=== PATIENT | female | born 1965 | race African-American/Black ===

== ENCOUNTER 2018-07-28 04:05 | Observation (INO) ==
--- NOTE | 2018-07-28 04:37 | ED ---
HPI General Chief Complaint: Headache Stated Complaint: Medical Clearance Time Seen by Provider: 07/28/18 04:28 Source: patient and family Mode of arrival: ambulatory Limitations: no limitations History of Present Illness HPI Narrative: 52-year-old female presents to the emergency department by private transportation in the care of family for evaluation of dizziness mild headache brief period of being aphasic. According to the patient she has moved here from [facility] approximately 5 months ago in January. [place] had several episodes like this over the past year and since arriving here and moving to the area she has had 2 and this is her second episode. Patient states she went to bed feeling well having no concerns or complaints and awakened around 330 to go to the bathroom. Patient states she walked upstairs and when she got to the bathroom she felt very dizzy and had mild left-sided headache and did not feel well. Patient states she used to voice to text to her daughter and had to send a text twice. Daughter reports that upon her arrival to the bathroom patient was sitting upright was not able to say anything and seemed to be in a stare but the patient did try to communicate with the daughter. Patient and daughter both report episode was approximately 30 minutes in duration after the episode was resolved there was no confusion patient is back to her baseline. Patient has history of hypertension diabetes and migraines. Patient states this was not a typical migraine for her. Patient not experience any severe headache intractable headache vomiting visual or auditory disturbance. Patient has had some associated nausea. Patient denies any chest pain shortness of breath referred neck jaw back shoulder arm pain upper extremity lower extremity numbness tingling or weakness but had generalized weakness no recent dysuria frequency urgency polyuria polyphagia polydipsia. Patient states blood sugars have been well controlled. Patient states she has never had these dizzy spells evaluated before. No prior history of TIA CVA seizure or arrhythmia. MD complaint: Reports dizziness and other (headache) Onset (ago): minute(s) Time: 03:30 Timing: gradual onset Description: Reports lightheadedness History of similar episodes: Yes History of trauma: No Severity: similar to previous episodes Relieving factors: nothing, remaining still and rest Exacerbating factors: nothing (Not aware of specific precipitating factor.) Associated symptoms: Reports nausea; Denies ataxia, chest pain, confusion, diaphoresis, fever, chills, malaise, rash, shortness of breath, syncope, vision changes and vomiting Related Data Home Medications Medication Instructions Recorded Confirmed amlodipine [Norvasc] 10 mg PO DAILY 07/28/18 07/28/18 ferrous sulfate [iron] 325 mg PO DAILY 07/28/18 07/28/18 gabapentin 300 mg PO TID 07/28/18 07/28/18 hydrochlorothiazide 12.5 mg PO DAILY 07/28/18 07/28/18 omeprazole magnesium [Prilosec OTC] 20 mg PO DAILY 07/28/18 07/28/18 quetiapine [Seroquel] 100 mg PO TID 07/28/18 07/28/18 topiramate 50 mg PO BID 07/28/18 07/28/18 venlafaxine 150 mg PO DAILY 07/28/18 07/28/18 Allergies Allergy/AdvReac Type Severity Reaction Status Date / Time No Known Allergies Allergy Verified 07/28/18 04:24 Review of Systems ROS: all other systems reviewed are negative PMFSH History History Provided By: Patient (Diabetes hypertension migraine dizzy spells) Medical History Medical History Diabetes (Acute) Hypertension (Acute) Patient denies medical problems (Acute) Social History Social History Substance History: No History of Abuse Smoking Status: Never smoker How Often Do You Have a Drink Containing Alcohol: Never Recent Travel in [facility] within the Last 8 Weeks: No Recent Out of Country Travel within the Last 8 Weeks: No Immunization History Tetanus Immunization: Unsure Exam Narrative Exam Narrative: GENERAL: Well-developed well-nourished female in no acute distress no respiratory distress GCS 15 SKIN: Focused skin assessment warm/dry. HEAD: Atraumatic. Normocephalic. EYES: Pupils equal and round. No scleral icterus. No injection or drainage. ENT: No nasal bleeding or discharge. Mucous membranes pink and moist. NECK: Trachea midline. No JVD. CARDIOVASCULAR: Regular rate and rhythm. No murmur appreciated. RESPIRATORY: No accessory muscle use. Clear to auscultation. Breath sounds equal bilaterally. GASTROINTESTINAL: Abdomen soft, non-tender, nondistended. Hepatic and splenic margins not palpable. MUSCULOSKELETAL: No obvious deformities. No clubbing. No cyanosis. No edema. NEUROLOGICAL: Awake and alert. No obvious cranial nerve deficits. Motor grossly within normal limits. Normal speech. PSYCHIATRIC: Appropriate mood and affect; insight and judgment normal. Course Initial Documented Vital Signs Temperature 97.7 F 07/28/18 04:08 Pulse Rate 67 07/28/18 04:08 Respiratory Rate 16 07/28/18 04:08 Blood Pressure 145/80 H 07/28/18 04:08 Pulse Oximetry 100 07/28/18 04:08 Last Documented Vital Signs Temperature 97.7 F 07/28/18 04:08 Pulse Rate 80 07/28/18 06:49 Respiratory Rate 16 07/28/18 06:49 Blood Pressure 145/71 H 07/28/18 06:49 Pulse Oximetry 100 07/28/18 06:49 Medical Decision Making MDM Narrative Medical decision making narrative: 52-year-old female comes in concerned with dizziness reportedly. Of being nonverbal and mild headache with history of migraines with atypical headache symptoms not of her migraine. Patient replaced on quality assurance monitor orthostatic blood pressure and heart rate will be obtained CT brain noncontrast ordered EKG and lab work ordered Patient given Zofran 4 mg for complaint of nausea CT brain noncontrast reveals no acute abnormality patient given Toradol 30 mg IV for complaint of mild headache for 5/10 in intensity Urinalysis pending lab values are otherwise grossly in normal range patient still complains of dizziness neurologic exam remains nonfocal and NIH SS is 0 patient does report headache somewhat positional but also persistent will put patient in for observation and further TIA workup; EKG sinus without ectopy. Medical Screen Exam Complete: Yes Emergency Medical Condition: Yes Differential Diagnosis Differential Diagnosis: Dizziness, TIA, migraine variant, seizure, arrhythmia, post micturition near syncope, hypoglycemia Medical Records no prior visit Lab Data Lab results reviewed: Yes I reviewed the patient's lab results. Result diagrams: 07/28/18 04:30 07/28/18 04:30 Lab Results 07/28/18 07/28/18 Range/Units 04:30 04:30 WBC 4.5 (4.0-11.0) th/mm3 RBC 4.50 (4.00-5.30) mil/mm3 Hgb 12.5 (11.6-15.3) gm/dL Hct 38.2 (35.0-46.0) % MCV 85.0 (80.0-100.0) fL MCH 27.7 (27.0-34.0) pg MCHC 32.6 (32.0-36.0) % RDW 14.3 (11.6-17.2) % Plt Count 232 (150-450) th/mm3 MPV 7.8 (7.0-11.0) fL Neut % (Auto) 52.0 (16.0-70.0) % Lymph % (Auto) 37.7 (9.0-44.0) % [place] % (Auto) 6.8 (0.0-8.0) % Eos % (Auto) 3.1 (0.0-4.0) % Baso % (Auto) 0.4 (0.0-2.0) % Neut # (Auto) 2.3 (1.8-7.7) th/mm3 Lymph # (Auto) 1.7 (1.0-4.8) th/mm3 [place] # (Auto) 0.3 (0.0-0.9) th/mm3 Eos # (Auto) 0.1 (0.0-0.4) th/mm3 Baso # (Auto) 0.0 (0.0-0.2) th/mm3 WBC Differential . Differential Comment Auto diff final Sodium 140 (136-145) meq/L Potassium 3.5 (3.5-5.1) meq/L Chloride 107 (98-107) meq/L Carbon Dioxide 25.5 (21.0-32.0) meq/L Anion Gap 8 (5-15) meq/L BUN 12 (7-18) mg/dL Creatinine 1.10 H (0.50-1.00) mg/dL Estimated GFR 52 L (>89) mL/min Random Glucose 128 H (74-106) mg/dL Calcium 8.8 (8.5-10.1) mg/dL Magnesium 2.0 (1.5-2.5) mg/dL Total Bilirubin 0.2 (0.2-1.0) mg/dL AST 13 L (15-37) U/L ALT 16 (10-53) U/L Alkaline Phosphatase 72 (45-117) U/L Total Creatine Kinase 110 (26-192) U/L Troponin I Less than 0.02 L (0.02-0.05) ng/mL Total Protein 8.0 (6.4-8.2) g/dL Albumin 3.8 (3.4-5.0) g/dL Imaging Data Radiologist's impression: Head CT 07/28/18 04:28 CONCLUSION: Negative noncontrast head CT. . ECG Data Interpretation: EKG: Normal sinus rhythm no ectopy or ST segment elevation or injury Discharge Plan Discharge Disposition Patient Disposition: 30 Still Patient Discharge Condition Condition: Stable Discharge Details Diagnosis: Dizziness, TIA (transient ischemic attack) Physicians Team ED Provider: Nadiya Augustine Primary Care Provider: Primary Care Savanna Henderson Rxs /Orders / Referrals /Forms Prescriptions: No Action venlafaxine 150 mg Capsule,Extended Release 24hr 150 mg PO DAILY RF: 0 quetiapine [Seroquel] 100 mg Tablet 100 mg PO TID RF: 0 amlodipine [Norvasc] 10 mg Tablet 10 mg PO DAILY RF: 0 ferrous sulfate [iron] 325 mg (65 mg iron) Tablet 325 mg PO DAILY RF: 0 gabapentin 300 mg Capsule 300 mg PO TID RF: 0 hydrochlorothiazide 25 mg Tablet 12.5 mg PO DAILY RF: 0 omeprazole magnesium [Prilosec OTC] 20 mg Tablet,Delayed Release (Dr/Ec) 20 mg PO DAILY RF: 0 topiramate 50 mg Tablet 50 mg PO BID RF: 0 Status ED Status: Admitted Observation Patient
[2018-07-28 04:44] LABS: Baso % (Auto) 0.4 % (0.0-2.0); Eos # (Auto) 0.1 th/mm3 (0.0-0.4); Eos % (Auto) 3.1 % (0.0-4.0); Hematocrit 38.2 % (35.0-46.0); Hemoglobin 12.5 gm/dL (11.6-15.3); Lymph # (Auto) 1.7 th/mm3 (1.0-4.8); Lymph % (Auto) 37.7 % (9.0-44.0); Mean Corpuscular HGB Conc 32.6 % (32.0-36.0); Mean Corpuscular Hemoglobin 27.7 pg (27.0-34.0); Mean Platelet Volume 7.8 fL (7.0-11.0); Mono # (Auto) 0.3 th/mm3 (0.0-0.9); Mono % (Auto) 6.8 % (0.0-8.0); Neut # (Auto) 2.3 th/mm3 (1.8-7.7); Platelet Count 232 th/mm3 (150-450); Red Cell Distribution Width 14.3 % (11.6-17.2); White Blood Count 4.5 th/mm3 (4.0-11.0)
--- NOTE | 2018-07-28 04:56 | CT ---
EXAM DATE: 07/28/2018 4:42 AM EDT AGE/SEX: 52 years / Female INDICATIONS: Migraine. Nausea and dizziness. CLINICAL DATA: This is the patient's initial encounter. Patient reports that signs and symptoms have been present for 1 day and indicates a pain score of 6/10. MEDICAL/SURGICAL HISTORY: Diabetes. Hypertension. None. RADIATION DOSE: 56.35 CTDI (mGy) COMPARISON: No prior exams available for comparison. TECHNIQUE: CT of the head without contrast. Using automated exposure control and adjustment of the mA and/or kV according to patient size, radiation dose was kept as low as reasonably achievable to ob tain optimal diagnostic quality images. DICOM format image data is available electronically for revi ew and comparison. FINDINGS: Cerebrum: The ventricles are normal for age. No evidence of midline shift, mass lesion, hemorrhage or acute infarction. No extraaxial fluid collections are seen. Posterior Fossa: The cerebellum and brainstem are intact. The 4th ventricle is midline. The cerebe llopontine angle is unremarkable. Extracranial: The visualized portion of the orbits is intact. Skull: The calvaria is intact. No evidence of skull fracture. CONCLUSION: Negative noncontrast head CT. . Electronically signed by: Rigo Pagan MD 07/28/2018 4:55 AM EDT
[2018-07-28 05:00] LABS: Albumin 3.8 g/dL (3.4-5.0); Anion Gap 8 meq/L (5-15); Aspartate Aminotransferase 13 U/L (15-37); Blood Urea Nitrogen 12 mg/dL (7-18); Calcium 8.8 mg/dL (8.5-10.1); Carbon Dioxide 25.5 meq/L (21.0-32.0); Chloride 107 meq/L (98-107); Glomerular Filtration Rate 52 mL/min (>89); Glucose,Random 128 mg/dL (74-106); Potassium 3.5 meq/L (3.5-5.1); Sodium 140 meq/L (136-145)
[2018-07-28 05:01] LABS: Alanine Aminotransferase 16 U/L (10-53)
[2018-07-28 05:05] LABS: Alkaline Phosphatase 72 U/L (45-117); Creatine Kinase 110 U/L (26-192)
[2018-07-28] MEDS ORDERED: Ketorolac Inj 30 MG/ML (IVP) Vial IV.PUSH ONE (06:05)
[2018-07-28] MEDS ORDERED: Dextrose 50% in Water 50 ML Vial IV.PUSH PRN (06:43)
[2018-07-28] MEDS ORDERED: Insulin NovoLOG Aspart Correctional Sugar Inj SQ PRN (06:43)
[2018-07-28 07:28] LABS: Bilirubin,Urine Negative (Negative); Clarity,Urine Hazy (Clear); Color,Urine Yellow (Yellw/Straw); Glucose,Urine (UA) Negative (Negative); Leukocyte Esterase,Urine Negative (Negative); Nitrite,Urine Negative (Negative)
[2018-07-28 07:42] LABS: RBC,Urine 0-3 /hpf (0-3); Specific Gravity,Urine 1.015 (1.002-1.035); WBC,Urine 0-5 /hpf (0-5)
[2018-07-28 07:43] LABS: Bacteria,Urine Few /hpf
[2018-07-28] MEDS: Enoxaparin Inj 40 MG/0.4 ML Syringe SQ SCH (08:32)
--- NOTE | 2018-07-28 08:48 | US ---
EXAM DATE: 07/28/2018 8:33 AM EDT AGE/SEX: 52 years / Female INDICATIONS: Transient ischemic attack. CLINICAL DATA: This is the patient's initial encounter. Patient reports that signs and symptoms have been present for 1 day and indicates a pain score of 0/10. MEDICAL/SURGICAL HISTORY: Hypertension. Diabetes. None. COMPARISON: No prior exams available for comparison. VELOCITY PARAMETERS: ICA/CCA Ratio: Right 1.6 , Left 1.0 ICA: Right 99 cm/sec, Left 76 cm/sec CCA: Right 62 cm/sec, Left 78 cm/sec ECA: Right 110 cm/sec, Left 90 cm/sec Vertebral: Right 46 cm/sec antegrade, Left 40 cm/sec antegrade FINDINGS: Right Carotid: No significant plaque is visualized.The waveforms are within normal limits. Left Carotid: No significant plaque is visualized. The waveforms are within normal limits. Other: None. CONCLUSION: No hemodynamically significant stenosis in either carotid artery Electronically signed by: Cuauhtemoc Carrasco MD 07/28/2018 8:47 AM EDT
--- NOTE | 2018-07-28 11:10 | P.HP ---
History of Present Illness Service: [facility] Hospitalist service Primary Care Physician: No Primary Care Physician Chief Complaint: Dizziness History of Present Illness: Patient is a very pleasant 52-year-old right-handed female with known history of hypertension, GERD, depression, posttraumatic stress disorder, migraine headaches, who presented to the ER complaining of dizziness. Patient states that this morning after going to the bathroom felt dizzy. Patient sat down and was unable to move which lasted for about 30 minutes. Patient did experience some slight nausea however no vomiting. Described as having spinning sensation States this happened before in the past sometime in January 2018 while she was in [place]. Patient states that she just moved down here from [place] and has not established with a primary care. States history of smoking but quit in 1994 denies any alcohol or recreational drug use. As outpatient patient takes hydrochlorothiazide 25 mg daily, vitamin C 500 mg daily, amlodipine 10 mg daily Gabapentin 300 mg 3 times a day, ferrous sulfate 325 mg daily Omeprazole 20 mg daily for reflux Ibuprofen 800 mg as needed for headache Topamax 50 mg daily for migraine headaches Venlafaxine ER 150 mg daily Seroquel 100 mg at bedtime as needed for sleep Loratadine 10 mg as needed as needed for allergy Chlorzoxazone 500 mg twice daily as needed for muscle spasms. Review of Systems Patient denies any recent fever URI symptoms, patient does have history of reflux Denies any melena or hematochezia Denies any urinary symptoms No history of seizures No leg swelling PMFSH - History History Provided By: Patient (Diabetes hypertension migraine dizzy spells) - Medical History Medical History: Medical History (Last Reviewed 07/28/18 @ 07:53 by Bert Pizarro) Diabetes Hypertension Patient denies medical problems - Tobacco History Smoking Status: Never smoker - Alcohol History How Often Do You Have a Drink Containing Alcohol: Never - Substance Use History Substance History: No History of Abuse - Travel History Recent Travel in the [place] Within the Last 8 Weeks: No Recent Travel Out of the Country Within the Last 8 Weeks: No - Immunization History Tetanus Immunization: Unsure Medications and Allergies Active Medications: Active Medications Aspirin (Ecotrin) 81 mg PO DAILY MATTHEW Dextrose (D50w Vial) 50 ml IV.PUSH UNSCH PRN PRN Reason: per Hypoglycemic Protocol Divalproex Sodium (Depakote Er) 250 mg PO DAILY MATTHEW Enoxaparin Sodium (Lovenox Inj) 40 mg SQ Q24H MATTHEW Last Admin: 07/28/18 08:32 Dose: 40 mg Glucagon (Glucagon Inj) 1 mg OTHER UNSCH PRN PRN Reason: per Hypoglycemic Protocol Insulin Aspart (Novolog Insulin Correctional Sugar Inj) 0 unit SQ ACHS PRN; Protocol PRN Reason: Per Protocol Sodium Chloride (Ns Flush) 2 ml IV.FLUSH PRN PRN PRN Reason: FLUSH AFTER USING IV ACCESS Last Admin: 07/28/18 06:10 Dose: 2 ml Allergies Allergy/AdvReac Type Severity Reaction Status Date / Time No Known Allergies Allergy Verified 07/28/18 04:24 Home Medications Medication Instructions Recorded Confirmed Type amlodipine [Norvasc] 10 mg PO DAILY 07/28/18 07/28/18 History ferrous sulfate [iron] 325 mg PO DAILY 07/28/18 07/28/18 History gabapentin 300 mg PO TID 07/28/18 07/28/18 History hydrochlorothiazide 12.5 mg PO DAILY 07/28/18 07/28/18 History omeprazole magnesium [Prilosec OTC] 20 mg PO DAILY 07/28/18 07/28/18 History quetiapine [Seroquel] 100 mg PO TID 07/28/18 07/28/18 History topiramate 50 mg PO BID 07/28/18 07/28/18 History venlafaxine 150 mg PO DAILY 07/28/18 07/28/18 History Exam Vital signs: Vital Signs 07/28/18 04:08 07/28/18 05:07 07/28/18 06:49 Temperature 97.7 F Pulse Rate 67 80 Respiratory Rate 16 16 Blood Pressure 145/80 H 145/71 H Pulse Oximetry 100 100 100 07/28/18 08:10 Temperature Pulse Rate 72 Respiratory Rate 16 Blood Pressure 128/62 Pulse Oximetry 97 Intake & Output 07/27/18 07/28/18 07/28/18 18:59 06:59 18:59 Weight 82 kg Narrative: Patient is awake alert oriented x3 not in any form of distress with clear speech Anicteric sclerae no nystagmus Extraocular muscle full range of motion Neck supple no rigidity supple no bruit Chest lungs bilateral breath sounds equal no rales Regular rhythm Abdomen is soft nontender with good bowel sounds Extremities no edema Neuro exam ANO x3 extraocular muscle full range of motion no nystagmus no facial asymmetry tongue midline with good gag reflex DTRs +2 in all extremities, grossly no sensory deficit. Motor 5/5 on the left Results - Labs CBC & Chem 7: 07/28/18 04:30 07/28/18 04:30 Labs: Laboratory Results - last 24 hr 07/28/18 07/28/18 07/28/18 04:30 04:30 06:15 WBC 4.5 RBC 4.50 Hgb 12.5 Hct 38.2 MCV 85.0 MCH 27.7 MCHC 32.6 RDW 14.3 Plt Count 232 MPV 7.8 Neut % (Auto) 52.0 Lymph % (Auto) 37.7 [place] % (Auto) 6.8 Eos % (Auto) 3.1 Baso % (Auto) 0.4 Neut # (Auto) 2.3 Lymph # (Auto) 1.7 [place] # (Auto) 0.3 Eos # (Auto) 0.1 Baso # (Auto) 0.0 WBC Differential . Differential Comment Auto diff final Sodium 140 Potassium 3.5 Chloride 107 Carbon Dioxide 25.5 Anion Gap 8 BUN 12 Creatinine 1.10 H Estimated GFR 52 L Random Glucose 128 H Calcium 8.8 Magnesium 2.0 Total Bilirubin 0.2 AST 13 L ALT 16 Alkaline Phosphatase 72 Total Creatine Kinase 110 Troponin I Less than 0.02 L Total Protein 8.0 Albumin 3.8 Urine Color Yellow Urine Clarity Hazy H Urine pH 6.0 Ur Specific [place] 1.015 Urine Protein Negative Urine Glucose (UA) Negative Urine Ketones Negative Urine Occult Blood Negative Urine Nitrate Negative Urine Bilirubin Negative Urine Urobilinogen 2.0 H Ur Leukocyte Esterase Negative Urine RBC 0-3 Urine WBC 0-5 Ur Squamous Epith Cells 6-10 H Urine Bacteria Few H Micro UA Comment Culture not ind Ur Microscopic Review Not Reportable Urine Culture Comments Culture not ind - Imaging Impressions Carotid Doppler Study 07/28/18 00:00 CONCLUSION: No hemodynamically significant stenosis in either carotid artery Head CT 07/28/18 04:28 CONCLUSION: Negative noncontrast head CT. . Caprini VTE Risk Assessment Caprini VTE Risk Assessment: Moderate/High Risk (score >= 2) Caprini Risk Assessment Model: Point Value = 1 Point Value = 2 Point Value = 3 Point Value = 5 Age 41-60 Minor surgery BMI > 25 kg/m2 Swollen legs Varicose veins or History of unexplained or recurrent spontaneous Oral contraceptives or hormone replacement Sepsis (< 1 month) Serious lung disease, including pneumonia (< 1 month) Abnormal pulmonary function Acute myocardial infarction Congestive heart failure (< 1 month) History of inflammatory bowel disease Medical patient at bed rest Age 61-74 Arthroscopic surgery Major open surgery (> 45 min) Laparoscopic surgery (> 45 min) Malignancy Confined to bed (> 72 hours) Immobilizing plaster cast Central venous access Age >= 75 History of VTE Family history of VTE Factor V Leiden Prothrombin [id number] Lupus anticoagulant Anticardiolipin antibodies Elevated serum homocysteine Heparin-induced thrombocytopenia Other congenital or acquired thrombophilia Stroke (< 1 month) Elective arthroplasty Hip, pelvis, or leg fracture Acute spinal cord injury (< 1 month) Prophylaxis Regimen: Total Risk Factor Score Risk Level Prophylaxis Regimen 0-1 Low Early ambulation 2 Moderate Order ONE of the following: *Sequential Compression Device (SCD) *Heparin 5000 units SQ BID 3-4 Higher Order ONE of the following medications: *Heparin 5000 units SQ TID *Enoxaparin/Lovenox 40 mg SQ daily (WT < 150 kg, CrCl > 30 mL/min) *Enoxaparin/Lovenox 30 mg SQ daily (WT < 150 kg, CrCl > 10-29 mL/min) *Enoxaparin/Lovenox 30 mg SQ BID (WT < 150 kg, CrCl > 30 mL/min) AND/OR *Sequential Compression Device (SCD) 5 or more Highest Order ONE of the following medications: *Heparin 5000 units SQ TID (Preferred with Epidurals) *Enoxaparin/Lovenox 40 mg SQ daily (WT < 150 kg, CrCl > 30 mL/min) *Enoxaparin/Lovenox 30 mg SQ daily (WT < 150 kg, CrCl > 10-29 mL/min) *Enoxaparin/Lovenox 30 mg SQ BID (WT < 150 kg, CrCl > 30 mL/min) AND *Sequential Compression Device (SCD) Assessment and Plan - Plan 52-year-old female right-handed presenting with Dizziness with transient aphasia and weakness all resolved rule out TIA Head CT was negative, ultrasound of the carotids was negative. Neurology consulted and was seen by Dr. Durán MRI/MRA and of the brain and carotids ordered. Get 2D echo. Neurochecks every 4 ASA daily History of migraine headaches. Continue on Topamax 50 mg once daily. As outpatient states takes gabapentin 300 mg 3 times prn for this. Discussed with Dr. Hebert - luisa Atkinson. History of depression/posttraumatic stress disorder Per patient she takes Seroquel 100 mg at bedtime as needed we will hold for now Glucose intolerance- RBC 128 not known diabetic check a1C History of hypertension. on amlodipine 10 mg daily hydrochlorothiazide 25 mg daily-as outpatient. Hold for now and check orthostatics GERD. Continue on omeprazole 20 mg daily Increase activity out of bed to chair for all meals Ambulate as tolerated. PT consulted Lovenox for DVT prophylaxis
--- NOTE | 2018-07-28 12:20 | MB ---
cc: Walker Hebert MD DATE: 07/28/2018 HISTORY OF PRESENT ILLNESS: A 52-year-old, right-handed woman with a history of hypertension, [id number] diabetes, hypercholesterolemia, hypothyroidism who has had for several years, dizziness up to 4 times a year where she will likely have some vertigo; might last about 20 minutes. She has chronic daily headaches on top of her head. She got up to go to the bathroom this morning and felt dizzy and vertiginous, and then sat on the toilet, felt vertiginous felt like she might pass out, felt cold and clammy, which does happen to her. No chest pain or palpitations and then she lasted about 20 minutes. She says when it occurs she is, like paralyzed in her legs, but really I think it is more that she is generally weak. She was able to make a phone call to a family member, who said her eyes were rolling back somewhat and her head was down, but she did not have a seizure and then she did not pass out. Then she was brought into the hospital here. Family brought her in, said she could not talk. MEDICATIONS AT HOME: 1. Norvasc. 1. Iron. 2. Gabapentin. 3. Hydrochlorothiazide. 4. Omeprazole. 5. Seroquel 100 t.i.d. 6. Topamax 7. Venlafaxine. PAST MEDICAL HISTORY: As above; does not take an aspirin a day. REVIEW OF SYSTEMS: Denied any chest pain, palpitations, [place], CABG, stent, angioplasty, A-Fib, Coumadin, renal, hepatic or pulmonary disease, lupus, ulcer, cancer, seizure, stroke. SOCIAL HISTORY: Nonsmoker or drinker; lives with her niece. FAMILY HISTORY: Negative for cancer. Positive for seizures in a sister. Positive for a stroke in a sister in her 40s. Positive for stroke in her grandmother. PHYSICAL EXAMINATION: VITAL SIGNS: Afebrile, 145/80. NECK: There were no carotid or vertebral bruits. HEART: Regular rate and rhythm. I did not detect a murmur. NEUROLOGIC: Hallpike maneuver was negative bilaterally. Pupils are equal. Discs are sharp. Visual shin are full. Extraocular movement intact. No nystagmus. Hearing was intact. Face is symmetric with normal sensation. Tongue was midline. There is no drift. She had normal strength in upper and lower extremities bilaterally. DTRs are 2+ symmetric throughout. Toes downgoing bilaterally. She is not ataxic on [id number]. Speech is fluent. She is not aphasic. Pinprick is intact throughout. DIAGNOSTIC DATA: EKG shows sinus rhythm. LABORATORY DATA: CBC, UA normal. BMP is normal; glucose 128. LFTs, CPK, troponin, albumin all negative. IMAGIN. She had a CAT scan of her brain that was normal. 2. Carotid ultrasound is negative. ASSESSMENT AND PLAN: Likely a peripheral vestibulopathy with vertigo and then she has some transient low blood pressure with that. We will check an MRI of the brain, MRA of the neck and [place]; some blood work on her and EEG. If her MRI is negative, I think she could be discharged, but I think this is just vertigo and then she has a secondary reaction to that with some vasovagal spell with that. She had an echo done, if that is negative, she could just go home on the aspirin. We will just have them check a standing blood pressure also on her. She is already on Topamax 50 b.i.d., probably for her migraines. We will put her on Depakote 250 a day and at night, which may also help as a mood stabilizer for her migraines. MD MARCOS Couch/jenn , 10:47 AM , 10:57 AM
[2018-07-28 12:33] LABS: Free T4 (Free Thyroxine) 0.79 ng/dL (0.76-1.46); Thyroid Stimulating Hormone 0.629 uIU/mL (0.358-3.740); Vitamin B12 381 pg/mL (193-986)
--- NOTE | 2018-07-28 12:50 | ECHRPT ---
Indication: CVA/TIA CONCLUSIONS The left ventricular systolic function is normal with an estimated ejection fraction in the range of 55-60%. Wall thickness is measured at the upper limits of normal. Trace pulmonary valve regurgitation. There is a small circumfrencial pericardial effusion present. Possible pleural effusion BP: / HR: Rhythm: Sinus MEASUREMENTS (Male / Female) Normal Values Technical Quality:Fair 2D ECHO LV Diastolic Diameter PLAX 4.5 cm 4.2 - 5.9 / 3.9 - 5.3 cm LV Systolic Diameter PLAX 3.4 cm IVS Diastolic Thickness 1.1 cm 0.6 - 1.0 / 0.6 - 0.9 cm LVPW Diastolic Thickness 0.9 cm 0.6 - 1.0 / 0.6 - 0.9 cm LV Relative Wall Thickness 0.4 LVOT Diameter 2.1 cm Aortic Root Diameter 2.8 cm LA Systolic Diameter LX 2.7 cm 3.0 - 4.0 / 2.7 - 3.8 cm DOPPLER AV Peak Velocity 153.0 cm/s AV Peak Gradient 9.4 mmHg AV Mean Gradient 5.0 mmHg AV Velocity Time Integral 29.7 cm LVOT Peak Velocity 94.7 cm/s LVOT Peak Gradient 3.6 mmHg LVOT Velocity Time Integral 18.5 cm AV Area Cont Eq vti 2.2 cm AV Area Cont Eq pk 2.1 cm Mitral E Point Velocity 74.5 cm/s Mitral A Point Velocity 76.5 cm/s Mitral E to A Ratio 1.0 LV E' Lateral Velocity 8.3 cm/s Mitral E to LV E' Lateral Ratio 9.0 LV E' Septal Velocity 6.1 cm/s Mitral E to LV E' Septal Ratio 12.1 TR Peak Velocity 122.0 cm/s TR Peak Gradient 6.0 mmHg Right Atrial Pressure 10.0 mmHg Pulmonary Artery Systolic Pressu 16.0 mmHg Right Ventricular Systolic Press 16.0 mmHg PV Peak Velocity 65.4 cm/s PV Peak Gradient 1.7 mmHg FINDINGS LEFT VENTRICLE The left ventricular systolic function is normal with an estimated ejection fraction in the range of 55-60%. Wall thickness is measured at the upper limits of normal. Normal left ventricular size. No regional wall motion abnormalities are present. RIGHT VENTRICLE The right ventricular size is normal. The right ventricular systoilc function is normal. LEFT ATRIUM The left atrial size is normal. RIGHT ATRIUM The right atrial size is normal. ATRIAL SEPTUM Normal atrial septal thickness without atrial level shunting by limited color doppler interrogation. AORTA The aortic root and proximal ascending aorta are normal in size on limited imaging. MITRAL VALVE Structurally normal mitral valve. No mitral valve stenosis or regurgitation. AORTIC VALVE Trileaflet aortic valve. No aortic valve stenosis or regurgitation. TRICUSPID VALVE Structurally normal tricuspid valve. PULMONARY VALVE Trace pulmonary valve regurgitation. VESSELS The inferior vena cava is normal in size. PERICARDIUM There is a small circumfrencial pericardial effusion present. Possible pleural effusion Dhiraj Moran (Electronically Signed) Final Date:28 July 2018 12:49
--- NOTE | 2018-07-28 14:27 | ECG ---
Date Performed: 07/28/2018 Time Performed: 05:32:29 PTAGE: 52 years EKG: Sinus rhythm WITH FIRST DEGREE AV BLOCK MINIMAL VOLTAGE CRITERIA FOR LVH, CONSIDER NORMAL VARIANT ABNORMAL ECG NO PREVIOUS TRACING DOCTOR: Richi Menon Interpretating Date/Time 07/28/2018 14:25:48
[2018-07-28] MEDS ORDERED: Gadobutrol PF 10 MMOL/10 ML Vial (for RAD) IV.SIG ONE (14:32)
--- NOTE | 2018-07-28 14:40 | MR ---
EXAM DATE: 07/28/2018 2:29 PM EDT AGE/SEX: 52 years / Female INDICATIONS: CVA. Dizziness. CLINICAL DATA: This is the patient's initial encounter. Patient reports that signs and symptoms have been present for 1 day and indicates a pain score of 0/10. MEDICAL/SURGICAL HISTORY: Hypertension. Tubal ligation. Hysterectomy. COMPARISON: [facility] – [place], MR HEAD W & W/O CONTRAST, 07/28/2018. . TECHNIQUE: 3D [id number] MRA was performed. Source images, multiplanar STS MIP, and 3D volum e MIP reconstructions were reviewed. FINDINGS: There is excellent visualization of the major intracranial arteries out to the second-order branch ve ssels. There is no evidence for aneurysm, vessel truncation or stenosis, and no evidence for vascula r malformation. Dominant right vertebral artery. Anterior communicating artery with hypoplastic left A1 segment. CONCLUSION: 1. No large vessel stenosis or aneurysm. 2. Normal variants as above. Electronically signed by: Cuauhtemoc Carrasco MD 07/28/2018 2:39 PM EDT
--- NOTE | 2018-07-28 14:48 | MR ---
EXAM DATE: 07/28/2018 2:41 PM EDT AGE/SEX: 52 years / Female INDICATIONS: CVA. Dizziness. CLINICAL DATA: This is the patient's initial encounter. Patient reports that signs and symptoms have been present for 1 day and indicates a pain score of 0/10. MEDICAL/SURGICAL HISTORY: Hypertension. Tubal ligation. Hysterectomy. COMPARISON: [facility] [place], MRA HEAD W/O CONTRAST, 07/28/2018. . TECHNIQUE: Multiplanar, multisequence examination of the brain was performed without and with 10 ml G adavist (gadobutrol) contrast as a cumulative dose for multiple exams. FINDINGS: Cerebrum: The ventricles are normal for age. No evidence of midline shift, mass lesion, hemorrhage or acute infarction. No extraaxial fluid collections are seen. The pituitary gland and suprasellar cistern are normal in configuration. White Matter: No significant signal abnormalities are seen in the white matter. Posterior Fossa: The cerebellum and brainstem are intact. The 4th ventricle is midline. The cerebel lopontine angle is unremarkable. The cerebellar tonsils are normal in position. Diffusion Imaging: No focal areas of restricted diffusion are seen. No evidence of acute infarction . Extracranial: The visualized portions of the orbits and paranasal sinuses are unremarkable. Post Contrast: No abnormal areas of parenchymal or dural enhancement. No evidence of blood-brain ba rrier breakdown. CONCLUSION: 1. Negative MR Brain with and without contrast. Electronically signed by: Marquis Soler MD 07/28/2018 2:47 PM EDT
--- NOTE | 2018-07-28 14:50 | MR ---
EXAM DATE: 07/28/2018 2:43 PM EDT AGE/SEX: 52 years / Female INDICATIONS: Stroke. Dizziness. CLINICAL DATA: This is the patient's initial encounter. Patient reports that signs and symptoms have been present for 1 day and indicates a pain score of 0/10. MEDICAL/SURGICAL HISTORY: Hypertension. Hysterectomy. Tubal ligation. COMPARISON: No prior exams available for comparison. TECHNIQUE: 10 ml Gadavist (gadobutrol) contrast infused MRA (cumulative dose for multiple exams) of the extracranial circulation was performed using a neurovascular coil. Postprocessing was performed , including rotating sub-volume maximum intensity projections of each carotid artery, rotating full-v olume maximum intensity projections of both carotid arteries, sagittal and coronal sliding thin-slab reformations of each carotid artery, and left oblique sliding thin-slab reformation through the aorti c arch to include the origin of the arch branch vessels. FINDINGS: Aortic Arch : There is a three-vessel origin of the great vessels from the aorta. No evidence of o stial narrowing. Right Carotid : The common carotid artery is intact. The carotid bulb has a normal configuration wi thout ulceration or narrowing. The internal carotid artery lumen is smooth without stenosis. The ex ternal carotid artery is intact. Left Carotid : The common carotid artery is intact. The carotid bulb has a normal configuration wit hout ulceration or narrowing. The internal carotid artery lumen is smooth without stenosis. The ext ernal carotid artery is intact. Vertebrals : The vertebral arteries have a slightly asymmetric diameter. The right vertebral artery is dominant No stenotic lesions are seen. CONCLUSION: 1. Negative MRA Carotids. Percent stenosis is calculated using the diameter of the stenotic region over the diameter of the nor mal distal internal carotid artery Electronically signed by: Marquis Soler MD 07/28/2018 2:48 PM EDT
[2018-07-28 17:07] LABS: Hemoglobin A1c 5.7 % (4.3-6.0)
[2018-07-28] MEDS: Divalproex 250 MG ER Tablet PO SCH (20:20)
[2018-07-29 01:06] VITALS: RESP 16
[2018-07-29 07:36] LABS: Chol/HDL Ratio 3.38 Ratio; HDL Cholesterol 54.6 mg/dL (40.0-60.0)
--- NOTE | 2018-07-29 07:43 | P.PNNEU ---
Subjective Active Medications: Active Medications Aspirin (Ecotrin) 81 mg PO DAILY [facility] Dextrose (D50w Vial) 50 ml IV.PUSH UNSCH PRN PRN Reason: per Hypoglycemic Protocol Divalproex Sodium (Depakote Er) 250 mg PO DAILY [facility] Last Admin: 07/28/18 20:20 Dose: 250 mg Enoxaparin Sodium (Lovenox Inj) 40 mg SQ Q24H [facility] Last Admin: 07/28/18 08:32 Dose: 40 mg Glucagon (Glucagon Inj) 1 mg OTHER UNSCH PRN PRN Reason: per Hypoglycemic Protocol Insulin Aspart (Novolog Insulin Correctional Sugar Inj) 0 unit SQ ACHS PRN; Protocol PRN Reason: Per Protocol Sodium Chloride (Ns Flush) 2 ml IV.FLUSH PRN PRN PRN Reason: FLUSH AFTER USING IV ACCESS Last Admin: 07/28/18 06:10 Dose: 2 ml Allergies/Adverse Reactions: Allergies Allergy/AdvReac Type Severity Reaction Status Date / Time No Known Allergies Allergy Verified 07/28/18 04:24 Physical Exam Vital signs: Vital Signs 07/28/18 08:10 07/28/18 11:44 07/28/18 15:57 Temperature 97.8 F Pulse Rate 72 70 63 Respiratory Rate 16 18 18 Blood Pressure 128/62 159/93 H 142/75 H Pulse Oximetry 97 98 98 07/28/18 20:00 07/29/18 00:00 07/29/18 03:45 Temperature 98.7 F 98.7 F 98.4 F Pulse Rate 74 80 79 Respiratory Rate 18 16 16 Blood Pressure 142/89 H 140/74 129/70 Pulse Oximetry 98 97 97 07/29/18 07:10 Temperature 98.5 F Pulse Rate 73 Respiratory Rate 16 Blood Pressure 142/73 H Pulse Oximetry 98 Intake & Output 07/28/18 07/29/18 07/29/18 18:59 06:59 18:59 Intake Total 500 / 500 Balance 500 / 500 Weight 82 kg Intake: Oral 500 / 500 Other: # Voids 1 Date of Last Bowel Movement 07/28/18 Weight On Admission 82 kg Narrative: still w foster alert awake Objective Laboratory Results - last 24 hr 07/28/18 07/28/18 07/28/18 04:30 06:15 11:23 ESR 16 POC Glucose Hemoglobin A1c 5.7 Triglycerides Cholesterol LDL Cholesterol, Calc HDL Cholesterol Cholesterol/HDL Ratio Vitamin B12 TSH Free T4 Beta HCG, Quant Urine Color Yellow Urine Clarity Hazy H Urine pH 6.0 Ur Specific [place] 1.015 Urine Protein Negative Urine Glucose (UA) Negative Urine Ketones Negative Urine Occult Blood Negative Urine Nitrate Negative Urine Bilirubin Negative Urine Urobilinogen 2.0 H Ur Leukocyte Esterase Negative Urine RBC 0-3 Urine WBC 0-5 Ur Squamous Epith Cells 6-10 H Urine Bacteria Few H Micro UA Comment Culture not ind Ur Microscopic Review Not Reportable Urine Culture Comments Culture not ind 07/28/18 07/28/18 07/28/18 11:23 11:34 18:15 ESR POC Glucose 100 85 Hemoglobin A1c Triglycerides Cholesterol LDL Cholesterol, Calc HDL Cholesterol Cholesterol/HDL Ratio Vitamin B12 381 TSH 0.629 Free T4 0.79 Beta HCG, Quant Less than 1 Urine Color Urine Clarity Urine pH Ur Specific [place] Urine Protein Urine Glucose (UA) Urine Ketones Urine Occult Blood Urine Nitrate Urine Bilirubin Urine Urobilinogen Ur Leukocyte Esterase Urine RBC Urine WBC Ur Squamous Epith Cells Urine Bacteria Micro UA Comment Ur Microscopic Review Urine Culture Comments 07/28/18 07/29/18 20:43 05:39 ESR POC Glucose 125 H Hemoglobin A1c Triglycerides 71 Cholesterol 185 LDL Cholesterol, Calc 116 H HDL Cholesterol 54.6 Cholesterol/HDL Ratio 3.38 Vitamin B12 TSH Free T4 Beta HCG, Quant Urine Color Urine Clarity Urine pH Ur Specific [place] Urine Protein Urine Glucose (UA) Urine Ketones Urine Occult Blood Urine Nitrate Urine Bilirubin Urine Urobilinogen Ur Leukocyte Esterase Urine RBC Urine WBC Ur Squamous Epith Cells Urine Bacteria Micro UA Comment Ur Microscopic Review Urine Culture Comments Review/Management - Review/Management Plan: imp echo nl heart mri/a/a neg labs ok standing bp ok ok to dc on 81 asa and depakote 250 1-2 hs and fu office 3 weeks defer to med team on possible effusion on echo
[2018-07-29] MEDS: Enoxaparin Inj 40 MG/0.4 ML Syringe SQ SCH (10:00)
[2018-07-29] MEDS: Divalproex 250 MG ER Tablet PO SCH (10:01)
--- NOTE | 2018-07-29 10:23 | P.PNIM ---
Subjective Interval history: Chief Complaint: Dizziness History of Present Illness: Patient is a very pleasant 52-year-old right-handed female with known history of hypertension, GERD, depression, posttraumatic stress disorder, migraine headaches, who presented to the ER complaining of dizziness. Patient states that this morning after going to the bathroom felt dizzy. Patient sat down and was unable to move which lasted for about 30 minutes. Patient did experience some slight nausea however no vomiting. Described as having spinning sensation States this happened before in the past sometime in January 2018 while she was in [place]. Patient states that she just moved down here from [place] and has not established with a primary care. States history of smoking but quit in 1994 denies any alcohol or recreational drug use. As outpatient patient takes hydrochlorothiazide 25 mg daily, vitamin C 500 mg daily, amlodipine 10 mg daily Gabapentin 300 mg 3 times a day, ferrous sulfate 325 mg daily Omeprazole 20 mg daily for reflux Ibuprofen 800 mg as needed for headache Topamax 50 mg daily for migraine headaches Venlafaxine ER 150 mg daily Seroquel 100 mg at bedtime as needed for sleep Loratadine 10 mg as needed as needed for allergy Chlorzoxazone 500 mg twice daily as needed for muscle spasms. 11-2 SEEN BY NEUROLOGY HAS SOME HEADACHE BUT WANTS TO GO HOME DW RN AND PT AND CM DC TO HOME TODAY ON ASA 81MG PO DAILY DEPAKOTE 250MG 1 TO 2 QHS FOLLOW UP WITH CHELI GERMAIN OF NEUROLGOY IN 3 WEEKS FOLLOW UP WITH PCP IN 3 TO 5 DAY ECHO IS STABLE -SMALL PERICARDIAL EFFUSION EF 55-605 MRIS AND MRAS STABLE WELL CAROTIDS DC TO HOME TODAY Physical Exam Vital signs: Vital Signs 07/28/18 11:44 07/28/18 15:57 07/28/18 20:00 Temperature 97.8 F 98.7 F Pulse Rate 70 63 74 Respiratory Rate 18 18 18 Blood Pressure 159/93 H 142/75 H 142/89 H Pulse Oximetry 98 98 98 07/29/18 00:00 07/29/18 03:45 07/29/18 07:10 Temperature 98.7 F 98.4 F 98.5 F Pulse Rate 80 79 73 Respiratory Rate 16 16 16 Blood Pressure 140/74 129/70 142/73 H Pulse Oximetry 97 97 98 Intake & Output 07/28/18 07/29/18 07/29/18 18:59 06:59 18:59 Intake Total 500 / 500 Balance 500 / 500 Weight 82 kg Intake: Oral 500 / 500 Other: # Voids 1 Date of Last Bowel Movement 07/28/18 Weight On Admission 82 kg Narrative: Patient is awake alert oriented x3 not in any form of distress with clear speech Anicteric sclerae no nystagmus Extraocular muscle full range of motion Neck supple no rigidity supple no bruit Chest lungs bilateral breath sounds equal no rales Regular rhythm Abdomen is soft nontender with good bowel sounds Extremities no edema Neuro exam ANO x3 extraocular muscle full range of motion no nystagmus no facial asymmetry tongue midline with good gag reflex DTRs +2 in all extremities, grossly no sensory deficit. Motor 5/5 on the left Results - Labs CBC & Chem 7: 07/28/18 04:30 07/28/18 04:30 Laboratory Results - last 24 hr 07/28/18 07/28/18 07/28/18 04:30 11:23 11:23 ESR 16 POC Glucose Hemoglobin A1c 5.7 Triglycerides Cholesterol LDL Cholesterol, Calc HDL Cholesterol Cholesterol/HDL Ratio Vitamin B12 381 TSH 0.629 Free T4 0.79 Beta HCG, Quant Less than 1 07/28/18 07/28/18 07/28/18 11:34 18:15 20:43 ESR POC Glucose 100 85 125 H Hemoglobin A1c Triglycerides Cholesterol LDL Cholesterol, Calc HDL Cholesterol Cholesterol/HDL Ratio Vitamin B12 TSH Free T4 Beta HCG, Quant 07/29/18 05:39 ESR POC Glucose Hemoglobin A1c Triglycerides 71 Cholesterol 185 LDL Cholesterol, Calc 116 H HDL Cholesterol 54.6 Cholesterol/HDL Ratio 3.38 Vitamin B12 TSH Free T4 Beta HCG, Quant - Imaging Impressions Neck MRA 07/28/18 00:00 CONCLUSION: 1. Negative MRA Carotids. Percent stenosis is calculated using the diameter of the stenotic region over the diameter of the normal distal internal carotid artery Head MRI 07/28/18 10:43 CONCLUSION: 1. Negative MR Brain with and without contrast. Head MRA 07/28/18 10:44 CONCLUSION: 1. No large vessel stenosis or aneurysm. 2. Normal variants as above. - Procedures NONE Assessment and Plan - Plan 52-year-old female right-handed presenting with Dizziness with transient aphasia and weakness all resolved rule out TIA Head CT was negative, ultrasound of the carotids was negative. Neurology consulted and was seen by Dr. Durán MRI/MRA and of the brain and carotids ordered. Get 2D echo. Neurochecks every 4 ASA daily POSSIBLE TIA CLEARED BY NEUROLOGY DC TO HOME History of migraine headaches. Continue on Topamax 50 mg once daily. As outpatient states takes gabapentin 300 mg 3 times prn for this. Discussed with Dr. Hebert - luisa Atkinson. History of depression/posttraumatic stress disorder Per patient she takes Seroquel 100 mg at bedtime as needed we will hold for now Glucose intolerance- RBC 128 not known diabetic check a1C History of hypertension. on amlodipine 10 mg daily hydrochlorothiazide 25 mg daily-as outpatient. Hold for now and check orthostatics GERD. Continue on omeprazole 20 mg daily Increase activity out of bed to chair for all meals Ambulate as tolerated. PT consulted Lovenox for DVT prophylaxis CLEARED BY NEUROLOGY DC TO HOME TODAY FOLLOW UP DR HEBERT IN 3 WEEKS FOLLOW UP WITH PCP IN 3 TO 5 DAYS DC TO HOME TODAY Code Status: FULL CODE Discussed Condition With: RN AND PT Discharge Planning: DC TO HOME TODAY
--- NOTE | 2018-07-29 10:32 | P.DS ---
Date of admission: 07/28/18 06:49 Primary care physician: No Primary Care Physician Attending physician on discharge: Jerome Olson Anticipated date of discharge: 07/29/18 Brief History from admission: Patient is a very pleasant 52-year-old right-handed female with known history of hypertension, GERD, depression, posttraumatic stress disorder, migraine headaches, who presented to the ER complaining of dizziness. Patient states that this morning after going to the bathroom felt dizzy. Patient sat down and was unable to move which lasted for about 30 minutes. Patient did experience some slight nausea however no vomiting. Described as having spinning sensation States this happened before in the past sometime in January 2018 while she was in [place]. Patient states that she just moved down here from [place] and has not established with a primary care. States history of smoking but quit in 1994 denies any alcohol or recreational drug use. As outpatient patient takes hydrochlorothiazide 25 mg daily, vitamin C 500 mg daily, amlodipine 10 mg daily Gabapentin 300 mg 3 times a day, ferrous sulfate 325 mg daily Omeprazole 20 mg daily for reflux Ibuprofen 800 mg as needed for headache Topamax 50 mg daily for migraine headaches Venlafaxine ER 150 mg daily Seroquel 100 mg at bedtime as needed for sleep Loratadine 10 mg as needed as needed for allergy Chlorzoxazone 500 mg twice daily as needed for muscle spasms. Patient update on day of discharge: Chief Complaint: Dizziness History of Present Illness: Patient is a very pleasant 52-year-old right-handed female with known history of hypertension, GERD, depression, posttraumatic stress disorder, migraine headaches, who presented to the ER complaining of dizziness. Patient states that this morning after going to the bathroom felt dizzy. Patient sat down and was unable to move which lasted for about 30 minutes. Patient did experience some slight nausea however no vomiting. Described as having spinning sensation States this happened before in the past sometime in January 2018 while she was in [place]. Patient states that she just moved down here from [place] and has not established with a primary care. States history of smoking but quit in 1994 denies any alcohol or recreational drug use. As outpatient patient takes hydrochlorothiazide 25 mg daily, vitamin C 500 mg daily, amlodipine 10 mg daily Gabapentin 300 mg 3 times a day, ferrous sulfate 325 mg daily Omeprazole 20 mg daily for reflux Ibuprofen 800 mg as needed for headache Topamax 50 mg daily for migraine headaches Venlafaxine ER 150 mg daily Seroquel 100 mg at bedtime as needed for sleep Loratadine 10 mg as needed as needed for allergy Chlorzoxazone 500 mg twice daily as needed for muscle spasms. 11-2 SEEN BY NEUROLOGY HAS SOME HEADACHE BUT WANTS TO GO HOME DW RN AND PT AND CM DC TO HOME TODAY ON ASA 81MG PO DAILY DEPAKOTE 250MG 1 TO 2 QHS FOLLOW UP WITH [facility] IN 3 WEEKS FOLLOW UP WITH PCP IN 3 TO 5 DAY ECHO IS STABLE -SMALL PERICARDIAL EFFUSION EF 55-605 MRIS AND MRAS STABLE WELL CAROTIDS DC TO HOME TODAY DS: Diagnosis - Discharge Diagnosis (1) GERD (gastroesophageal reflux disease) Status: Chronic (2) Persistent headaches Status: Acute (3) Dizziness Status: Acute (4) TIA (transient ischemic attack) Status: Acute DS: Medications - Discharge Medications Prescriptions: aspirin 81 mg PO DAILY #30 tab divalproex [Depakote ER] 250 mg PO DAILY PRN #60 tab PRN Reason: Headache meclizine 25 mg PO Q6H PRN #60 tab PRN Reason: Dizziness DS: Summary Hospital Course: Chief Complaint: Dizziness History of Present Illness: Patient is a very pleasant 52-year-old right-handed female with known history of hypertension, GERD, depression, posttraumatic stress disorder, migraine headaches, who presented to the ER complaining of dizziness. Patient states that this morning after going to the bathroom felt dizzy. Patient sat down and was unable to move which lasted for about 30 minutes. Patient did experience some slight nausea however no vomiting. Described as having spinning sensation States this happened before in the past sometime in January 2018 while she was in [place]. Patient states that she just moved down here from [place] and has not established with a primary care. States history of smoking but quit in 1994 denies any alcohol or recreational drug use. As outpatient patient takes hydrochlorothiazide 25 mg daily, vitamin C 500 mg daily, amlodipine 10 mg daily Gabapentin 300 mg 3 times a day, ferrous sulfate 325 mg daily Omeprazole 20 mg daily for reflux Ibuprofen 800 mg as needed for headache Topamax 50 mg daily for migraine headaches Venlafaxine ER 150 mg daily Seroquel 100 mg at bedtime as needed for sleep Loratadine 10 mg as needed as needed for allergy Chlorzoxazone 500 mg twice daily as needed for muscle spasms. 11-2 SEEN BY NEUROLOGY HAS SOME HEADACHE BUT WANTS TO GO HOME DW RN AND PT AND CM DC TO HOME TODAY ON ASA 81MG PO DAILY DEPAKOTE 250MG 1 TO 2 QHS FOLLOW UP WITH [facility] IN 3 WEEKS FOLLOW UP WITH PCP IN 3 TO 5 DAY ECHO IS STABLE -SMALL PERICARDIAL EFFUSION EF 55-605 MRIS AND MRAS STABLE WELL CAROTIDS DC TO HOME TODAY 52-year-old female right-handed presenting with Dizziness with transient aphasia and weakness all resolved rule out TIA Head CT was negative, ultrasound of the carotids was negative. Neurology consulted and was seen by Dr. Durán MRI/MRA and of the brain and carotids ordered. Get 2D echo. Neurochecks every 4 ASA daily POSSIBLE TIA CLEARED BY NEUROLOGY DC TO HOME History of migraine headaches. Continue on Topamax 50 mg once daily. As outpatient states takes gabapentin 300 mg 3 times prn for this. Discussed with Dr. Hebert - start Depakote. History of depression/posttraumatic stress disorder Per patient she takes Seroquel 100 mg at bedtime as needed we will hold for now Glucose intolerance- RBC 128 not known diabetic check a1C History of hypertension. on amlodipine 10 mg daily hydrochlorothiazide 25 mg daily-as outpatient. Hold for now and check orthostatics GERD. Continue on omeprazole 20 mg daily Increase activity out of bed to chair for all meals Ambulate as tolerated. PT consulted Lovenox for DVT prophylaxis CLEARED BY NEUROLOGY DC TO HOME TODAY FOLLOW UP DR HEBERT IN 3 WEEKS FOLLOW UP WITH PCP IN 3 TO 5 DAYS DC TO HOME TODAY - Time Spent with Patient Total time spent providing and/or coordinating discharge services: Greater than 30 minutes - Quality: VTE Deep Vein Thrombosis/Pulmonary Embolism Present on Admission: No Exam Vital signs: Vital Signs 07/28/18 11:44 07/28/18 15:57 07/28/18 20:00 Temperature 97.8 F 98.7 F Pulse Rate 70 63 74 Respiratory Rate 18 18 18 Blood Pressure 159/93 H 142/75 H 142/89 H Pulse Oximetry 98 98 98 07/29/18 00:00 07/29/18 03:45 07/29/18 07:10 Temperature 98.7 F 98.4 F 98.5 F Pulse Rate 80 79 73 Respiratory Rate 16 16 16 Blood Pressure 140/74 129/70 142/73 H Pulse Oximetry 97 97 98 Intake & Output 07/28/18 07/29/18 07/29/18 18:59 06:59 18:59 Intake Total 500 / 500 Balance 500 / 500 Weight 82 kg Intake: Oral 500 / 500 Other: # Voids 1 Date of Last Bowel Movement 07/28/18 Weight On Admission 82 kg Narrative: Patient is awake alert oriented x3 not in any form of distress with clear speech Anicteric sclerae no nystagmus Extraocular muscle full range of motion Neck supple no rigidity supple no bruit Chest lungs bilateral breath sounds equal no rales Regular rhythm Abdomen is soft nontender with good bowel sounds Extremities no edema Neuro exam ANO x3 extraocular muscle full range of motion no nystagmus no facial asymmetry tongue midline with good gag reflex DTRs +2 in all extremities, grossly no sensory deficit. Motor 5/5 on the left Results Procedures completed during hospitalization: NONE Completed studies during hospitalization: Laboratory Results WBC 4.5 th/mm3 (4.0-11.0) 07/28/18 04:30 RBC 4.50 mil/mm3 (4.00-5.30) 07/28/18 04:30 Hgb 12.5 gm/dL (11.6-15.3) 07/28/18 04:30 Hct 38.2 % (35.0-46.0) 07/28/18 04:30 MCV 85.0 fL (80.0-100.0) 07/28/18 04:30 MCH 27.7 pg (27.0-34.0) 07/28/18 04:30 MCHC 32.6 % (32.0-36.0) 07/28/18 04:30 RDW 14.3 % (11.6-17.2) 07/28/18 04:30 Plt Count 232 th/mm3 (150-450) 07/28/18 04:30 MPV 7.8 fL (7.0-11.0) 07/28/18 04:30 Neut % (Auto) 52.0 % (16.0-70.0) 07/28/18 04:30 Lymph % (Auto) 37.7 % (9.0-44.0) 07/28/18 04:30 [place] % (Auto) 6.8 % (0.0-8.0) 07/28/18 04:30 Eos % (Auto) 3.1 % (0.0-4.0) 07/28/18 04:30 Baso % (Auto) 0.4 % (0.0-2.0) 07/28/18 04:30 Neut # (Auto) 2.3 th/mm3 (1.8-7.7) 07/28/18 04:30 Lymph # (Auto) 1.7 th/mm3 (1.0-4.8) 07/28/18 04:30 Geary # (Auto) 0.3 th/mm3 (0.0-0.9) 07/28/18 04:30 Eos # (Auto) 0.1 th/mm3 (0.0-0.4) 07/28/18 04:30 Baso # (Auto) 0.0 th/mm3 (0.0-0.2) 07/28/18 04:30 WBC Differential . 07/28/18 04:30 Differential Comment Auto diff final 07/28/18 04:30 ESR 16 mm/hr (0-30) 07/28/18 11:23 Sodium 140 meq/L (136-145) 07/28/18 04:30 Potassium 3.5 meq/L (3.5-5.1) 07/28/18 04:30 Chloride 107 meq/L (98-107) 07/28/18 04:30 Carbon Dioxide 25.5 meq/L (21.0-32.0) 07/28/18 04:30 Anion Gap 8 meq/L (5-15) 07/28/18 04:30 BUN 12 mg/dL (7-18) 07/28/18 04:30 Creatinine 1.10 mg/dL (0.50-1.00) H 07/28/18 04:30 Estimated GFR 52 mL/min (>89) L 07/28/18 04:30 POC Glucose 125 mg/dl (68-110) H 07/28/18 20:43 Random Glucose 128 mg/dL (74-106) H 07/28/18 04:30 Hemoglobin A1c 5.7 % (4.3-6.0) 07/28/18 04:30 Calcium 8.8 mg/dL (8.5-10.1) 07/28/18 04:30 Magnesium 2.0 mg/dL (1.5-2.5) 07/28/18 04:30 Total Bilirubin 0.2 mg/dL (0.2-1.0) 07/28/18 04:30 AST 13 U/L (15-37) L 07/28/18 04:30 ALT 16 U/L (10-53) 07/28/18 04:30 Alkaline Phosphatase 72 U/L (45-117) 07/28/18 04:30 Total Creatine Kinase 110 U/L (26-192) 07/28/18 04:30 Troponin I Less than 0.02 ng/mL (0.02-0.05) L 07/28/18 04:30 Total Protein 8.0 g/dL (6.4-8.2) 07/28/18 04:30 Albumin 3.8 g/dL (3.4-5.0) 07/28/18 04:30 Triglycerides 71 mg/dL (42-150) 07/29/18 05:39 Cholesterol 185 mg/dL (120-200) 07/29/18 05:39 LDL Cholesterol, Calc 116 mg/dL (0-99) H 07/29/18 05:39 HDL Cholesterol 54.6 mg/dL (40.0-60.0) 07/29/18 05:39 Cholesterol/HDL Ratio 3.38 Ratio 07/29/18 05:39 Vitamin B12 381 pg/mL (193-986) 07/28/18 11:23 TSH 0.629 uIU/mL (0.358-3.740) 07/28/18 11:23 Free T4 0.79 ng/dL (0.76-1.46) 07/28/18 11:23 Beta HCG, Quant Less than 1 mIU/mL (0-5) 07/28/18 11:23 Urine Color Yellow (Yellw/Straw) 07/28/18 06:15 Urine Clarity Hazy (Clear) H 07/28/18 06:15 Urine pH 6.0 (5.0-8.5) 07/28/18 06:15 Ur Specific [place] 1.015 (1.002-1.035) 07/28/18 06:15 Urine Protein Negative mg/dL (Neg-Trace) 07/28/18 06:15 Urine Glucose (UA) Negative mg/dL (Negative) 07/28/18 06:15 Urine Ketones Negative mg/dL (Negative) 07/28/18 06:15 Urine Occult Blood Negative (Negative) 07/28/18 06:15 Urine Nitrate Negative (Negative) 07/28/18 06:15 Urine Bilirubin Negative (Negative) 07/28/18 06:15 Urine Urobilinogen 2.0 mg/dL (Less than 2) H 07/28/18 06:15 Ur Leukocyte Esterase Negative (Negative) 07/28/18 06:15 Urine RBC 0-3 /hpf (0-3) 07/28/18 06:15 Urine WBC 0-5 /hpf (0-5) 07/28/18 06:15 Ur Squamous Epith Cells 6-10 /hpf (0-5) H 07/28/18 06:15 Urine Bacteria Few /hpf (None) H 07/28/18 06:15 Micro UA Comment Culture not ind 07/28/18 06:15 Ur Microscopic Review Not Reportable 07/28/18 06:15 Urine Culture Comments Culture not ind 07/28/18 06:15 Impressions Carotid Doppler Study 07/28/18 00:00 CONCLUSION: No hemodynamically significant stenosis in either carotid artery Neck MRA 07/28/18 00:00 CONCLUSION: 1. Negative MRA Carotids. Percent stenosis is calculated using the diameter of the stenotic region over the diameter of the normal distal internal carotid artery Head CT 07/28/18 04:28 CONCLUSION: Negative noncontrast head CT. . Head MRI 07/28/18 10:43 CONCLUSION: 1. Negative MR Brain with and without contrast. Head MRA 07/28/18 10:44 CONCLUSION: 1. No large vessel stenosis or aneurysm. 2. Normal variants as above. Labs on day of discharge: Labs from last 24 hours 07/29/18 07/29/18 07/28/18 05:39 05:39 20:43 ESR POC Glucose 125 H Hemoglobin A1c Pending Triglycerides 71 Cholesterol 185 LDL Cholesterol, Calc 116 H HDL Cholesterol 54.6 Cholesterol/HDL Ratio 3.38 Vitamin B12 TSH Free T4 Beta HCG, Quant LEIA Screen RPR 07/28/18 07/28/18 07/28/18 18:15 11:34 11:23 ESR POC Glucose 85 100 Hemoglobin A1c Triglycerides Cholesterol LDL Cholesterol, Calc HDL Cholesterol Cholesterol/HDL Ratio Vitamin B12 TSH Free T4 Beta HCG, Quant LEIA Screen Pending RPR Pending 07/28/18 07/28/18 07/28/18 11:23 11:23 04:30 ESR 16 POC Glucose Hemoglobin A1c 5.7 Triglycerides Cholesterol LDL Cholesterol, Calc HDL Cholesterol Cholesterol/HDL Ratio Vitamin B12 381 TSH 0.629 Free T4 0.79 Beta HCG, Quant Less than 1 LEIA Screen RPR - Impressions ITS Impressions Carotid Doppler Study 07/28/18 00:00 CONCLUSION: No hemodynamically significant stenosis in either carotid artery Neck MRA 07/28/18 00:00 CONCLUSION: 1. Negative MRA Carotids. Percent stenosis is calculated using the diameter of the stenotic region over the diameter of the normal distal internal carotid artery Head CT 07/28/18 04:28 CONCLUSION: Negative noncontrast head CT. . Head MRI 07/28/18 10:43 CONCLUSION: 1. Negative MR Brain with and without contrast. Head MRA 07/28/18 10:44 CONCLUSION: 1. No large vessel stenosis or aneurysm. 2. Normal variants as above. Discharge Plan - Discharge Disposition Patient Disposition: 01 Discharge Home - Discharge Condition Condition: Stable - Discharge Order Discharge Orders: Discharge Order (Routine); Ordered 07/29/18 Ordered By: Jerome Olson - Physicians Team Primary Care Provider: Primary Care Physici,No Attending Provider: Jerome Olson Other Providers: Walker Hebert MD
[2018-07-29 11:09] VITALS: BP 145/71; PULSE 81; TEMP 98.6; O2SAT 97
[2018-07-29 11:19] LABS: Hemoglobin A1c 5.7 % (4.3-6.0)
[2018-07-29 15:18] LABS: Anti-Nuclear Antibody Screen Pos (Neg)
--- NOTE | 2018-08-01 00:57 | HM ---
Date Performed: 07/28/2018 Time Performed: 19:38:00 HOOKUP DATE: 07/28/18 07:38:00 PM Sheri ANALYSIS START TIME: 07/28/2018 7:43:00 PM ANALYSIS END TIME: 07/29/2018 11:19:10 AM PATIENT AGE: 52 PATIENT HEIGHT PATIENT WEIGHT: 180 DRUG LIST: ROOM G73 PATIENT DIAGNOSIS: MEDICAL CLEARANCE TEST NARRATIVE: The patient's average heart rate was 78 BPM. Heart rates greater than 120 B PM were noted < 1% of the time. No episodes of bradycardia were noted. No pauses exceeding 2.0 s econds were noted. 73 ventricular ectopics, which represented < 1% of the total beat count, were noted. The highest ventricular ectopic frequency occurred from 09:00 AM to 10:00 AM Fri. During thi s time 18 VE(s) occurred. Ventricular ectopics were observed as 69 isolated beat(s) and as 2 couplet (s). No runs were noted. 2 supraventricular ectopics, which represented < 1% of the total beat c ount, were noted. The highest supraventricular ectopic frequency occurred from 08:00 PM to 09:00 PM Sheri. During this time 1 SVE(s) occurred. No episodes of ST depression (defined as -1.0 mm or mor e) were noted in channel 1. No episodes of ST depression (defined as -1.0 mm or more) were noted in channel 2. No episodes of ST depression (defined as -1.0 mm or more) were noted in channel 3. NO CELIO RY ENTRIES WERE RECORDED BY PATIENT TEST INTERPRETATION: 1) Sinus rhythm 2) Rare PAC/PVC 3) Tachycardia during the exam, appears to be sinus tachycardia 4) No pauses noted 5 ) No diary returned Signed by : Teresita Pearson
[2018-08-01 13:28] LABS: Anti-Nuclear Antibody Pattern Speckled
== END 2018-07-29 13:25 | disposition home or self-care (01) ==
LOC: NEPC 04:05 → NEDA 04:05 → NEDH 08:14 → NEPGCP 11:07
PROVIDERS: ADMIT Hospitalist; ATTEND Hospitalist